=== PATIENT | female | born 1995 | race Caucasian/White ===

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

== ENCOUNTER 2017-06-30 22:30 | Emergency (ER) | END 2017-07-01 01:50 | disposition left against medical advice (07) ==

== ENCOUNTER 2017-12-25 07:57 | Outpatient (CLI) | END 2017-12-25 09:45 | disposition home or self-care (01) ==

== ENCOUNTER 2017-12-28 09:07 | Outpatient (CLI) | END 2017-12-28 12:14 | disposition home or self-care (01) ==

== ENCOUNTER 2017-12-31 07:37 | Outpatient (CLI) | END 2017-12-31 11:59 | disposition home or self-care (01) ==

== ENCOUNTER 2018-01-03 19:06 | Inpatient (IN) | END 2018-01-08 14:00 | disposition home or self-care (01) | DRG 775 ==